=== PATIENT | male | born 1975 | race Caucasian/White ===

== ENCOUNTER 2018-03-02 08:30 | Day surgery (SDC) | payer MEDICARE ==
[~2018-03-02] VITALS: Ht 160 cm; Wt 109.1 kg
--- NOTE | ~2018-03-02 | OP ---
PATIENT NAME: JENNIE BRONSON MEDICAL RECORD: [id number] :71 LOCATION:[facility] ADMISSION DATE: SURGEON: ANJEL BOOTH MD DATE OF OPERATION: 03/02/2018 REFERRING PHYSICIANS: 1. Sammy Rao MD 2. 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 ADDITIONAL DIAGNOSES: End-stage renal disease, dependence on hemodialysis; type 1 diabetes, uncontrolled. OPERATION PERFORMED: Left arm AV fistulogram with selective catheterization and performance of a brachial artery arteriogram with and without occlusion or partial occlusion of AV fistula and Bush banding procedure with application of two 2-0 Prolene ligatures around the fistula with a 4-mm diameter balloon inflated. SURGEON: Anjel Booth MD ANESTHESIA: General with LMA per WORKFORCE PLANNING ANALYST. PREOPERATIVE NOTE: Mr. Bronson is a 42-year-old white male, diabetic, patient of Dr. Rao and Dr. Reveles. He has had problems with proximal stenosis and worsening aneurysmal deterioration of his translocated basilic fistula in the left arm. He has some mild steal symptoms. He is brought to the operating room at this time with plans to perform a flow restricting procedure. With the patient under general anesthesia, he was prepped and draped in a sterile manner in supine position. The fistula was accessed at mid humeral level with micropuncture technique and a 6-Israeli introducer was placed, directed peripherally. An incision was made over the basilic vein, just above and medial to the arterial anastomosis. It was dissected and encircled with a Silastic loop. Contrast injections were done, which demonstrated free flow of contrast through the aneurysmal fistula into axillary vein and subclavian vein without obstruction seen. I passed a 0.035 Glidewire and then a [place] catheter distally through the fistula and the arterial anastomosis and into the proximal brachial artery and performed selective brachial artery arteriogram without any restriction of flow in the fistula. There was no flow into the forearm seen angiographically. With complete obstruction or occlusion of the fistula, there was only collateral flow into the forearm. 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 I placed a 4-mm angioplasty balloon within this juxta-anastomotic segment of the basilic vein and inflated it and then placed two ligatures of 2-0 Prolene around the fistula, over the balloon, and tied these down snugly. Repeated contrast injection as a selective arteriogram demonstrated appropriate narrowing in this segment and there was reduced and slower flow and palpably less pressure in the aneurysmal areas. The hardware was removed. The introducer was removed and hemostasis obtained at that site with a [id number] 4-0 Prolene and some direct digital pressure. The wound was closed with interrupted inverted 3-0 Vicryl and running intracuticular 4-0 Monocryl and Dermabond glue. It was dressed with Maxorb Ag, Tegaderm, and Cavilon skin prep. The patient was then OPERATIVE REPORT [id number] JENNIE BRONSON awakened from his anesthetic and taken to the recovery room in stable condition with a functioning fistula. Plan to keep the patient in overnight observation. His blood sugar was over 600 this morning and he has required frequent doses of insulin today to get it down into the 150-170 range. We will have nephrology work on this while he is here tonight and tomorrow. Hopefully, he can have dialysis here tomorrow and then be able to go home on his usual medications with whatever adjustments are made in his diabetes meds. He is to continue his routine dialysis schedule using his fistula and will be returning to see me in about 2 weeks. There was no blood loss during the procedure. All sponges, instruments, and needles were accounted for. No drain was used. No surgical specimen was submitted for histopathology. The procedure required about 45 minutes operating time. The wound was clean. The ASA rating was IV. TRANSINT:[id number] Voice Confirmation ID: [id number] DOCUMENT ID: [id number] ANJEL BOOTH MD at 2050 CC: [id number] DICTATION DATE: 03/02/181912 REGISTERED MEDICAL ASSISTANT: 03/02/181956 [facility] 03/03/18 [facility] [address] [place] [address]
[~2018-03-02 08:30] MED LIST: CHRONULAC30 ML PO; COLACE100 MG PO; CYCLOBENZAPRINE10 MG PO; EPOGEN10000 U/ML SQ; HECTOROL0.5 MCG PO; HYDROCODON-ACE1 EAC7 PO; LANTUS INSULIN10 ML SC; LASIX80 MG PO; LEVAQUIN750 MG PO; RENA-VITE TABL0.8 MG PO; RENVELA800 MG PO; ROBAXIN500 MG PO
[2018-03-02 09:22] LABS: BASOPHILS 0.6 % (0-2); EOSINOPHILS 1.9 % (0-7); HEMATOCRIT 34.1 % (42.0-54.0); IMMATURE GRANULOCYTES 0.4 % (0-5); LYMPHOCYTES 16.1 % (15-50); MCH 30.3 pg (26.0-34.0); MCHC 32.3 g/dL (31.0-37.0); MCV 93.9 fL (80.0-100.0); MEAN PLATELET VOLUME 9.4 fL (7.4-10.4); MONOCYTES 6.7 % (2-11); NEUTROPHILS 74.3 % (40-80); RBC 3.63 10x6/uL (4.20-6.10); RDW 15.1 % (11.5-14.5); WBC 5.4 10x3/uL (4.8-10.8)
[2018-03-02] MEDS ORDERED: PHOSLO667 MG PO (09:34)
[2018-03-02] MEDS ORDERED: REQUIP1 MG PO (09:37)
[2018-03-02] MEDS ORDERED: HUMALOG 30100 UNITS/ SC (09:37)
[2018-03-02 09:38] LABS: APTT 29.2 SECONDS (22.8-39.4); INR 1.04 (0.85-1.17); PROTIME 13.2 SECONDS (11.6-15.0)
[2018-03-02] MEDS ORDERED: BAYER CHEWABLE81 MG PO (09:38)
[2018-03-02 09:42] VITALS: BMI 42.6
[2018-03-02 09:51] LABS: ANION GAP 16.6 mmol/L (8-16); CALCIUM 8.5 mg/dL (8.5-10.1); CARBON DIOXIDE 28.3 mmol/L (21.0-32.0); CREATININE - SERUM 6.6 mg/dL (0.6-1.3); POTASSIUM - SERUM 4.9 mmol/L (3.5-5.1)
[2018-03-02 09:52] LABS: PLATELET COUNT 167 10x3/uL (130-400)
[2018-03-02 20:00] VITALS: BP 137/80
[2018-03-02 20:03] VITALS: BP 134/74
[2018-03-02 23:41] VITALS: BP 134/74; Ht 160 cm; Wt 109.1 kg
[2018-03-03] VITALS: BP 105/54
[2018-03-03] MEDS ORDERED: NORCO-5 PO (07:42)
[2018-03-03] MEDS ORDERED: PLAVIX75 MG PO (07:42)
[2018-03-03 08:22] VITALS: BP 185/68
== END 2018-03-03 15:34 | disposition home or self-care (01) ==
LOC: D.OPS 08:30 → D.M2 19:43 → D.OPS 03-03 15:34
PROVIDERS: Internal Medicine Nephrology
DX: E11.22 Type 2 diabetes mellitus with diabetic chronic kidney disease (principal); N18.6 End stage renal disease; Z99.2 Dependence on renal dialysis; E66.01 Morbid (severe) obesity due to excess calories; Z68.41 Body mass index [BMI] 40.0-44.9, adult; I50.9 Heart failure, unspecified; Z01.812 Encounter for preprocedural laboratory examination